=== PATIENT | female | born 1960 | race Hispanic/Latino ===

== ENCOUNTER 2024-06-17 09:36 | Inpatient (IN) | payer OTHER ==
[2024-06-17 17:27] VITALS: BMI 41.0
[2024-06-17] MEDS ORDERED: MELATONIN 3 MG TABLET PO PRN (18:34)
[2024-06-17] MEDS ORDERED: DOCUSATE NA/SENNA CONC 1 TAB PO PRN (18:34)
[2024-06-17] MEDS ORDERED: ALBUTEROL INHALER 200 PUFF/6.7 GM IH PRN (18:52)
[2024-06-17] MEDS: ACETAMINOPHEN 500 MG TAB PO PRN (19:15)
[2024-06-17] MEDS: CEFDINIR 300 MG CAP PO SCH (19:51)
[2024-06-17] MEDS: oxyBUTYnin chloride 5 MG TAB PO SCH (19:52)
[2024-06-17] MEDS: ATORVASTATIN 20 MG TAB PO SCH (19:52)
[2024-06-17] MEDS: SERTRALINE HCL 100 MG TAB PO SCH (19:52)
[2024-06-17] MEDS: GABAPENTIN 300 MG CAP PO SCH (19:52)
[2024-06-17] MEDS ORDERED: HIPREX 1 GM PO SCH (20:00)
[2024-06-17] MEDS: APIXABAN 2.5 MG TABLET PO SCH (20:00)
[2024-06-17] MEDS: APIXABAN 2.5 MG TABLET PO ONE (20:22)
[2024-06-17] MEDS: ISOSORBIDE MONO SR 60 MG TAB PO SCH (20:22)
[2024-06-17] MEDS: carvediloL 6.25 MG TAB PO SCH (20:22)
[2024-06-18 04:45] LABS: Absolute Basophils 0.1 K/uL (0-0.5); Absolute Monocytes 0.6 K/uL (0.1-1.3); Absolute Neutrophil 4.4 K/uL (1.8-8.0); MPV 9.3 fL (7.6-11.3)
[2024-06-18 04:47] LABS: Absolute Eosinophils 0.4 K/uL (0-0.5); Eosinophils % 5.1 % (0-4.4); Hematocrit 36.9 % (36.0-45.0); Hemoglobin 12.2 g/dL (12.0-15.0); MCH 33.3 pg (27.0-35.0); MCHC 32.9 g/dL (32.0-36.0); MCV 101.1 fL (80-100); Neutrophils % 58.9 % (41.7-73.7); Nucleated RBC Absolute Count 0.1 (0-0); Nucleated Red Blood Cells % 1.4 % (0-0); Platelets 240 thou/uL (152-406); RBC Red Blood Cell Count 3.65 M/uL (3.86-4.86); Red Cell Distribution Width 16.4 % (12.1-15.2)
[2024-06-18 06:04] LABS: Albumin 2.8 g/dL (3.4-5.0); Anion Gap 11.5 mEq/L (5.0-15.0); Prealbumin 19.8 mg/dL (20-40)
[2024-06-18 06:06] LABS: Potassium 3.5 mEq/L (3.5-5.1)
[2024-06-18] MEDS: NA CHLORIDE 0.9% 500 ML IV ONE ×2 (07:00→09:00)
[2024-06-18 07:39] LABS: Differential Total Cells Count 100; Eosinophils 4 % (0-3); Lymphocytes 27 % (15-42); Monocytes 7 % (0-10); Nucleated Red Blood Cells 1 /100WBC; Segmented Neutrophils 62 % (40-80)
[2024-06-18 07:40] LABS: Platelet Estimate ADEQ
[2024-06-18 07:41] LABS: Anisocytosis 1+; Blood Morphology Comment NOTED (NOT SEEN); Macrocytosis 1+
[2024-06-18] MEDS ORDERED: ANORO ELLIPTA PO SCH (08:00)
[2024-06-18] MEDS ORDERED: HIPREX 1 GM PO SCH (08:00)
[2024-06-18] MEDS: ANORO ELLIPTA PO SCH (08:00)
[2024-06-18] MEDS: FLU (Fluarix Triv) TS24-25(6MOS UP)/PF 45 MCG/0.5 ML Syringe IM ONE (08:45)
[2024-06-18] MEDS ORDERED: ALBUTEROL IH PRN (08:47)
[2024-06-18] MEDS: PNEUMOCOCCAL VACCINE 0.5 ML IMVAC ONE (09:00)
[2024-06-18] MEDS: allopurinoL 100 MG TAB PO SCH (09:22)
[2024-06-18] MEDS: CLOPIDOGREL 75 MG TABLET PO SCH (09:23)
[2024-06-18] MEDS: glipiZIDE 5 MG TAB PO SCH (09:23)
[2024-06-18] MEDS: SODIUM CHLORIDE 1 GM TAB PO ONE (09:24)
[2024-06-18] MEDS: FUROSEMIDE 40 MG TABLET PO SCH (09:24)
[2024-06-18] MEDS: SPIRONOLACTONE 25 MG TABLET PO SCH (09:26)
[2024-06-18] MEDS: NYSTATIN PWDR 100000 UNIT/GM TOP SCH (10:34)
[2024-06-18] MEDS: LINZESS 145 MCG PO SCH (10:35)
[2024-06-18] MEDS: HIPREX 1 GM PO SCH (10:35)
[2024-06-18] MEDS: DEXTROSE ORAL 40% 15 GM TUBE PO PRN (11:51)
[2024-06-18] MEDS: LOPERAMIDE HCL 2 MG CAPSULE PO PRN (12:48)
[2024-06-18] MEDS: SODIUM CHLORIDE 1 GM TAB PO SCH (17:02)
[2024-06-18] MEDS: NYSTATIN POWDER TOP SCH (19:48)
--- NOTE | 2024-06-18 22:03 | HP ---
Date of Admission: 06/17/2024 Time Of Service: 8:30 a.m. Chief Complaint: "I have had strokes, I need to get stronger." History Of Present Illness: Ms. Blankenship is a 63-year-old patient with coronary artery disease, status post 3 vessel bypass grafting; stroke in 2012 and 2 other subsequent strokes last 2022 with left-side d weakness more in the arm than in the leg; has also some loss of sensation in terms of deficit on th e left side. She has hypertension, dyslipidemia, chronic renal insufficiency, COPD, recurrent urinar y tract infections around every 3 months, anxiety, depression, arthritis. Despite the multiple condi tions and stroke, she had previously been independent mobilizing at home with a cane or rolling walke r, residing with her in home, which is 1 level with 3 steps to enter. On June 14, she prese nted to [facility] after being found unresponsive on the floor by family. She had m ore left-sided weakness and significant apparent worsening. She had increased difficulty with speech , worsening short-term memory. The patient thought she was having another stroke. Her family noted that prior to that, she actually had some episodes of stumbling and falling, where she herself actual ly said her left leg would just give out and have to pick her up. She was evaluated and found to be intermittently falling asleep and had subsequently when admitted nausea and vomiting with chronic javier rrhea. She was evaluated by colonoscopy and CT scan of the head and no acute abnormalities identifie d. She is evaluated by teleneurology and had an MRI of the brain, which showed no acute stroke, but a large area of gliosis in the right temporoparietal occipital region consistent with prior infarct. The patient was therefore thought to be experiencing the sequelae of stroke with intercurrent illnes s or mass deficit of a stroke from which she had mostly recovered. She said she was back to about 80 % or 90% to normal prior to the event. She was also found to be dehydrated and had sinus bradycardia requiring IV fluids and heart rate control. Echocardiogram showed ejection fraction of 60% to 79% w ith left internal carotid artery stent placement and there was occlusion on the right side . Urinary tract infection was identified after straight catheterization was done. Also, she had sta ge 2 acute on chronic renal disease, which is chronic stage 3-4 and stage 2 acute. She was felt to h ave had the acute issue from prerenal azotemia or decreased blood flow due to chronic diuresis. Her renal function did improve with fluids. She did remain incontinent of bowel, bladder, which is her b aseline, but it is noted that she would benefit from bladder training, bowel training to help prevent skin breakdown and reduce the risk of rehospitalization. She has had significant decline from her b aseline level of functioning with the left side worsening, dysarthria, worsening short-term memory in addition to her comorbid medical issues have been noted. She was evaluated by therapy service and f ound to be only able to ambulate about 10 feet with a rolling walker, physical therapy also had diffi culty with transfers from bed to chair, to toilet, to shower and had significant cognitive deficits a nd safety awareness issues. It was recommended that she would have inpatient rehabilitation along wi th medical management so that she may return to her prior level of functioning and reduce risk of sergio ospitalization. Therapy in a lower level of care such as long-term or at home would likely res ult in patient worsening. Past Medical History: As noted above with COPD; chronic renal insufficiency; CHF; coronary artery di sease, status post multivessel bypass grafting; diabetes mellitus; dyslipidemia; hypertension; urinar y tract infection; incontinent of bowel and bladder. Past Surgical History: Coronary artery bypass grafting, percutaneous coronary angioplasty, appendect felipe, cholecystectomy, hysterectomy, tonsillectomy, carotid angioplasty, splenectomy, left nephrectomy , and of course has a single kidney on the right that is functioning. Imaging: CT scan of abdomen and pelvis, no acute abnormalities identified. No osseous abnormalities in the cervical region identified when imaging of the neck was done. MRI of the brain on 06/15, neg ative for acute stroke. Large area of gliosis in the right temporal, parietal, occipital region comp atible with infarct. There is also on the Doppler study, right internal carotid artery estimated ___ occlusion and left internal carotid estimated 60% to 79% occlusion. Stent to the left [employer] intern al carotid artery with significant plaque visualization, anterograde flow noted. C-spine MRI on 10/2024, no acute osseous abnormality. Slight increased partial opacification of the left middle ear and mastoid air cells. Correlate with clinical findings. Allergies: IODINE, PEANUTS, SULFA. Medications: Tylenol Extra Strength 500 mg every 4 hours as needed, [place] 7.5/325 every 6 hours as n eeded, allopurinol 100 mg daily, Eliquis 2.5 mg daily, Lipitor 20 mg at bedtime, Coreg 6.25 mg twice daily, cefdinir 300 mg twice daily, Plavix 75 mg daily, Drisdol 5000 units weekly, Lasix 40 mg twice daily, glipizide 5 mg at breakfast, Imdur 60 mg twice daily, melatonin 3 mg at bedtime, Ditropan 10 m g at bedtime, Senokot S 2 at bedtime p.r.n. will be held if the patient has loose stools, Zoloft 100 mg at bedtime. She has sodium chloride received 2 g x1 and 1 g twice daily, spironolactone 25 mg hillary ly. Laboratory Studies: Her sodium is found to be very low currently at 114. Prior to coming to [facility], the sodium was reported at 144. She did receive 2 g of sodium and will have 1 g twice daily and n ormal saline 500 cc. However, this is much lower than the calculated requirement of the patient's so dium, which is around 2.5 L of 3% normal saline. However, that will not be given at this point. She will have a repeat electrolyte panel and will have gingerly replacement of sodium if it is still naeem y low. Potassium 3.5, chloride 85, carbon dioxide 21, BUN 46, creatinine 1.58, glucose of 63 to 70, calcium 9.1. Magnesium 2.0. Albumin 2.8, prealbumin 19.8. White blood cell count 7.5, hemoglobin 1 2.2, platelets 240. Family History: Noncontributory. Social History: No alcohol, tobacco, or IV drug use. Lives with family in single family home, 3 ozey ps to enter home. Current Level Of Functioning: Setup assistance for eating. Supervision for grooming. Maximum mia tance for bathing. Moderate assistance for upper body dressing. Maximal assistance for lower body d ressing and donning and doffing of footwear. She is dependent for toileting, moderate assistance for transfer from bed, chair, wheelchair. Her toilet specific transfers moderate assistance. Ambulatio n of 10 feet with supervision with a rolling walker. Physical Examination: Vital Signs: Blood pressure 142/70, pulse 74, respiratory rate 16, temperature 98.2, oxygen saturati on 95%. Weight 210 pounds, height 5 feet, BMI 41.0. Please note that her calculated sodium deficit with weight of 210 pounds or 95 kg is at 140 target with 114 current sodium and total body water of 0 .5 x 95 that equals to 1241 mEq sodium needed or 2.4 L at 3%. She will be re-evaluated with the repe at blood work. HEENT: She is normocephalic, atraumatic. She has a slight decrease of left nasolabial fold with jigar r excursions and smiling. Slight difficulty with labial, lingual, and guttural sounds. Neuro: The left upper and lower extremities, she has at least 3 to 4/5 strength and sensation is dec reased to non-existent on the left leg compared to the left arm. Right side upper and lower extremit ies intact in terms of strength, coordination, sensation. Reflexes are brisk on the left, normal on the right upper and lower extremities. Coordination is slow, but intact in upper and lower extremiti es. She will be ambulated with the physical therapists with gait belt and wheelchair and tow and she uses a rolling walker. Rehab And Medical Assessment And Plan: Ms. Blankenship is a 63-year-old patient admitted to the inpatient rehabilitation unit with impairment category 01 stroke. Her impairment group code is 01.1 left body involvement, right brain. Etiologic diagnosis, sequelae of stroke. Her comorbid conditions include diabetes mellitus; hypertension; dyslipidemia; coronary artery disease, status post multivessel bypas s grafting; urinary tract infection; incontinence of urine and stool; chronic kidney disease with an acute component; and decreased mobility; decreased physical functioning. Plan: She will have physical, occupational, and speech therapy 3.5 hours, 5 of 7 days. We will cont inue with careful monitoring of the patient's sodium for replacement of sodium chloride as appropriat mathieu and slowly. We will continue with diuresis gently. Zoloft at night for sleep. Senokot for cons tipation, but will hold when the patient has loose stool. Ditropan for urinary incontinence, melaton in again for insomnia. Continue glipizide for blood sugar control. She has a mild insulin sliding s villa. Vitamin D on board. She has Plavix 75 mg daily, Eliquis 2.5 mg daily for stroke and DVT risk reduction, allopurinol to address gout. She has Lipitor for dyslipidemia Tylenol and Hudgins for pain. Comorbidities That Are Impacting Rehabilitation: Currently, she has severe hyponatremia, however, th at may be an incorrect lab, is being repeated and she will have to have gingerly replacement so as to avoid central pontine myelinolysis. Next, we will offload as much as possible. The patient to redu ce risk of breakdown especially and because of incontinence of stool and urine and will be regularly taken with bowel and bladder training to have timed voidings to reduce the risk of time where she is remaining in stool. We will work aggressively with her balance and coordination. She has fallen mul tiple times when the left leg is giving out as she has very little proprioceptive and sensory input i n the left lower extremity contributing to her falls. We will re-educate how to be in attention usin g the left arm and assistive device to minimize the risk of falling. Rehab Specific Plan: Ms. Blankenship will have physical, occupational, and speech therapy 3.5 hours, 5 of 7 days to improve her ability to transfer safely from bed to a chair, to a wheelchair, to a toilet, i n and out of shower to dress upper and lower body, donning and doffing footwear. She will work with adaptive equipments to allow her to recognize changes in surfaces from carpeting to smooth surfaces, to tiles, to grass, ramps, and curbs. We will work on balance exercises and will work on endurance e xercises and improving pulmonary function and reducing risk of aspiration. Ms. Blankenship has a good understanding of the process of admission to the inpatient rehabilitation unit a nd how she will benefit from physical, occupational, and speech therapy. She will have 24 hours a da y, 7 days a week skilled rehabilitation nursing, daily physician evaluation and management, and [facility] and management for discharge planning, home equipment, and to continue therapy via Home Health. If need be, additional help will be sought by the hospitalist service and cardiolog y service. Barriers To Discharge: Currently, the patient does have significantly low sodium and that may lead t o prolonged hospitalization in acute care; however, that will be repeated and addressed slowly. Also , she has a high risk of falling given the loss of proprioception in left lower extremity. She will be re-educated, but if she is unable to thrive and do well and safe for home, she may have to go to [facility]. Length Of Stay: About 12 days. Disposition: Expected to be home with family and continue therapy via Home Health. Prognosis: Good. Code Status: Full code. Rehab Specific Goals: 1. Become independent with upper and lower body dressing, donning and doffing of footwear. 2. Independently mobilize 250 feet with a rolling walker, 250 feet with a wheelchair, and up and down 10 steps with bilateral handrails. 3. Independently perform all activities of daily living. 4. Independently perform cognitive functioning, safety awareness, and to be able to manage bowel and bladder functioning as safely as possible. The above goals were reviewed with Ms. Blankenship she is in agreement. By signing this document, I acknowledge I personally performed a full physical examination on Ms. Alan patiño no later than 24 hours after admission to the inpatient rehabilitation unit and determined that jed garrett is able to tolerate the above course of treatment at an intensive level for reasonable period of ti me. A detailed individualized plan of care for her will be completed by hospital day 4 based on the preadmission screen, history and physical, and therapy evaluations. AURY Voice ID: [id number]
[2024-06-19 05:50] LABS: Anion Gap 5.3 mEq/L (5.0-15.0); Potassium 4.3 mEq/L (3.5-5.1)
[2024-06-19] MEDS: HYDROCODONE/APAP 7.5/325 MG TAB PO PRN (08:25)
[2024-06-19] MEDS: glipiZIDE 5 MG TAB PO SCH (08:27)
[2024-06-19] MEDS ORDERED: GLUCAGON 1 MG/VIAL IV PRN (13:30)
[2024-06-19] MEDS: LIDOCAINE 4% PATCH TOP SCH (14:38)
[2024-06-19 19:35] LABS: Sqamous Epithelial <5 /HPF (None Seen); Urine Bacteria <20 /HPF (<20); Urine Bilirubin NEGATIVE (Negative); Urine Blood Negative (Negative); Urine Clarity Clear (Clear); Urine Color Colorless (Yellow); Urine Culture Reflex Order NOT NEEDED; Urine Glucose NEGATIVE (Negative); Urine Ketones NEGATIVE (Negative); Urine Microscopic Reflex YN ORDER UMIC; Urine Nitrite NEGATIVE (Negative); Urine Protein NEGATIVE (Negative); Urine RBC <5 /HPF (None Seen); Urine Urobilinogen Normal (Normal); Urine WBC <5 /HPF (<5); Urine Yeast (Budding) Trace /HPF (None Seen)
--- NOTE | 2024-06-19 20:09 | PN ---
Date of Progress Note: 06/19/2024 Time Of Service: 1:25 p.m. Subjective: Ms. Blankenship just completed going up and down 7 flights of steps. She did report some pain in the left knee and in the back of the neck on the left side. Otherwise, she has no additional or new complaints. She of course is dealing with the sequelae of stroke which involves left side more t manzano right foot. Objective: Pain noted in the left knee, both medial and lateral, in the left shoulder and neck regio n. Otherwise, normocephalic, atraumatic. Sclerae anicteric. Oropharynx moist. Physical Examination: Vital Signs: Blood pressure 148/65, pulse 64, respiratory rate 18, temperature 97.4, oxygen saturati on 94%. Weight 210 pounds, height 5 feet, BMI 41.0. Neuro: Again, as noted mild decreased left nasolabial fold. She has good excursions. She does not have a significant amount of weakness, just incoordination and more left and right-sided mild weaknes s, again pain noted, some mild increased amount of tissue palpated in the medial aspect of the left k nee, but no obvious fluid bearing. Laboratory Studies: White blood cell count is 7.5, hemoglobin 12.2, platelets 240. Sodium 141, pota ssium 4.3, chloride 115, carbon dioxide 25, creatinine is 1.65, glucose ranged from 74 to 96, hemoglo bin A1c 5.2, calcium 9.3. X-ray/imaging: No new x-rays or imaging done. Medications: Tylenol 500 mg every 4 hours as needed, [place] 7.5/325 every 6 hours as needed, allopuri nol 100 mg daily, Eliquis 2.5 mg twice daily, Lipitor 20 mg at bedtime, Coreg 6.25 mg twice daily, ce fdinir 300 mg twice daily, Plavix 75 mg daily, Drisdol 5000 units weekly, Lasix 40 mg twice daily, ga bapentin 400 mg twice daily, glipizide 2.5 mg daily, Imdur 60 mg twice daily, lidocaine 2 patches brynn lied as noted on the left knee and on the left shoulder neck region, melatonin 3 mg at bedtime, Ditro graf 10 mg at bedtime, Senokot 2 times at bedtime, Zoloft 100 mg at bedtime, spironolactone 25 mg julián y. Progress Made With Physical, Occupational, And Speech Therapy: With physical therapy today, she was able to ambulate about 125 feet with min assist and using the 2-wheeled walker. She was up and down 6 flights of steps with min to mod assist. Upper and lower body dressing done with supervision. She is beginning to work with speech pathology. Assessment: Ms. Blankenship is a 63-year-old patient with sequelae of stroke. She does have some weakness noted in both upper and lower extremities, incoordination, poor balance, poor gait. She has decreas ed mobility, decreased physical functioning. She also has depression, urinary retention, constipatio n, insomnia, diabetes, hypertension, and stroke risk. She has gout as well. Plan: She will have physical, occupational, and speech therapy 3.5 hours, 5 of 7 days. Continue wit h her list of medications for Eliquis 2.5 mg twice daily for DVT prophylaxis, allopurinol for gout. She has Coreg for heart rate and blood pressure control, Plavix for stroke risk reduction, vitamin D on board. She has gabapentin on board as well as medications for managing depression and anxiety. HAFSA/KENNEY Voice ID: [id number] Report ID: [id number]
[2024-06-19] MEDS: ANORO ELLIPTA PO SCH (20:50)
[2024-06-19] MEDS: carvediloL 6.25 MG TAB PO SCH (20:51)
[2024-06-19] MEDS: GABAPENTIN 400 MG CAP PO SCH (20:51)
[2024-06-20] MEDS: CRANBERRY FRUIT EXTRACT 425 MG CAPSULE PO SCH (06:49)
[2024-06-20] MEDS: ASPIRIN EC 81 MG TAB PO SCH (07:54)
[2024-06-20] MEDS ORDERED: LIDOCAINE 4% PATCH TOP SCH (08:00)
[2024-06-20] MEDS ORDERED: CRANBERRY FRUIT EXTRACT 425 MG CAPSULE PO SCH (08:00)
--- NOTE | 2024-06-20 15:22 | PN ---
Date of Progress Note: 06/20/2024 Time Of Service: 1:25 p.m. Subjective: Ms. Blankenship is sitting at the nursing station. She is in between therapy sessions. She h as no new complaints. She said the left knee pain has been mitigated well with a lidocaine patch. A lso, there is a patch in the left shoulder and that is also helpful. She is feeling well so far abou t the progress made with therapy. Objective: She denies any new symptoms and again reports some improved pain in the left knee and the left shoulder. No fevers, chills. No significant arthralgias. No rash. No active psychiatric iss ues. Physical Examination: Vital Signs: Blood pressure 116/56, pulse 55, respiratory rate of 16 to 18, temperature 97.9, oxygen saturation 98%. General: Ms. Blankenship is sitting in a chair getting ready to do therapy. HEENT: She is normocephalic, atraumatic. Sclerae anicteric. Oropharynx pink, moist. Neck: Supple. Chest: Clear. Extremities: No new findings or significant edema or so noted. Laboratory Studies: Blood sugars ranged from 94 to 147. X-ray/imaging: No new x-rays or imaging. Medications: Her medications have been reviewed and are unchanged. She still has the cefdinir 14 do ses ordered from 06/17 to 06/24 and that is b.i.d., she has glipizide 2.5 mg daily with breakfast. S he has also Imdur, lidocaine patch as noted, Imodium, melatonin, Ditropan for urinary retention, Seno manuela, Zoloft, spironolactone. Progress Made With Physical And Occupational Therapy: With her occupational therapy, contact minimal guard assistance required for tub and shower transfer, she did showering with minimal assistance, coulter pervision for upper body dressing, minimum assistance for lower body dressing, minimum assistance for donning and doffing footwear and socks. With speech, she has long-term goals of scoring greater tani n a 7 on the BIMS and improving the score to a 15 or better on the SLUMS. Assessment: Ms. Blankenship is a 63-year-old patient in the rehabilitation unit with sequelae of stroke. She is making fair overall progress, but still has significant way to go to improve her ability to re duce the chance of falling and injury and worsening condition. She still has decreased mobility, dec reased physical functioning in addition to urinary retention, fluid retention, insomnia, mild constip ation, neuropathic pain, diabetes mellitus, stroke risk, and gout. Plan: She will continue with physical, occupational, and speech therapy 3.5 hours, 5 of 7 days. Her list of medications has been noted. She will continue those. Continue with therapy and plan is for her to be able to discharge and go home to continue therapy at home. Depending on how she is doing, she may have to spend an extra active time as much as possible prior to going back home. HAFSA/KENNEY Voice ID: [id number] Report ID: [id number]
[2024-06-20] MEDS: INSULIN REGULAR (HUMAN) 100 UNIT/ML SQ SCH (16:27)
[2024-06-21] MEDS: SIMETHICONE 80 MG CHEWABLE TAB PO PRN (15:16)
[2024-06-21] MEDS: FUROSEMIDE 20 MG TABLET PO SCH (17:15)
[2024-06-21] MEDS: GLUCERNA SHAKE 237 ML CAN PO SCH (20:00)
[2024-06-21] MEDS: GABAPENTIN 300 MG CAP PO SCH (20:07)
--- NOTE | 2024-06-21 21:49 | P.CNS ---
Date of Consult: 06/22/24 Reason for Consult: CKD Requesting Physician: George Guillory Chief Complaint: Weakness History of Present Illness: Chief Complaint: "I have had strokes, I need to get stronger." History Of Present Illness: Ms. Blankenship is a 63-year-old patient with coronary artery disease, status post 3 vessel bypass grafting; stroke in 2012 and 2 other subsequent strokes last 2022 with left-sided weakness more in the arm than in the leg; has also some loss of sensation in terms of deficit on the left side. She has hypertension, dyslipidemia, chronic renal insufficiency, COPD, recurrent urinary tract infections around every 3 months, anxiety, depression, arthritis. Despite the multiple conditions and stroke, she had previously been independent mobilizing at home with a cane or rolling walker, residing with her in home, which is 1 level with 3 steps to enter. On June 14, she presented to [facility] after being found unresponsive on the floor by family. She had more left-sided weakness and significant apparent worsening. She had increased difficulty with speech, worsening short-term memory. The patient thought she was having another stroke. Her family noted that prior to that, she actually had some episodes of stumbling and falling, where she herself actually said her left leg would just give out and have to pick her up. She was evaluated and found to be intermittently falling asleep and had subsequently when admitted nausea and vomiting with chronic diarrhea. She was evaluated by colonoscopy and CT scan of the head and no acute abnormalities identified. She is evaluated by teleneurology and had an MRI of the brain, which showed no acute stroke, but a large area of gliosis in the right temporoparietal occipital region consistent with prior infarct. The patient was therefore thought to be experiencing the sequelae of stroke with intercurrent illness or mass deficit of a stroke from which she had mostly recovered. She said she was back to about 80% or 90% to normal prior to the event. She was also found to be dehydrated and had sinus bradycardia requiring IV fluids and heart rate control. Echocardiogram showed ejection fraction of 60% to 79% with left internal carotid artery stent placement and there was occlusion on the right side. Urinary tract infection was identified after straight catheterization was done. Also, she had stage 2 acute on chronic renal disease, which is chronic stage 3-4 and stage 2 acute. She was felt to have had the acute issue from prerenal azotemia or decreased blood flow due to chronic diuresis. Her renal function did improve with fluids. She did remain incontinent of bowel, bladder, which is her baseline, but it is noted that she would benefit from bladder training, bowel training to help prevent skin breakdown and reduce the risk of rehospitalization. She has had significant decline from her baseline level of functioning with the left side worsening, dysarthria, worsening short-term memory in addition to her comorbid medical issues have been noted. She was evaluated by therapy service and found to be only able to ambulate about 10 feet with a rolling walker, physical therapy also had difficulty with transfers from bed to chair, to toilet, to shower and had significant cognitive deficits and safety awareness issues. It was recommended that she would have inpatient rehabilitation along with medical management so that she may return to her prior level of functioning and reduce risk of rehospitalization. Therapy in a lower level of care such as long term or at home would likely result in patient worsening. She follows with Dr. Bonilla for her CKD. Past Medical History: As noted above with COPD; chronic renal insufficiency; CHF; coronary artery disease, status post multivessel bypass grafting; diabetes mellitus; dyslipidemia; hypertension; urinary tract infection; incontinent of bowel and bladder. Past Surgical History: Coronary artery bypass grafting, percutaneous coronary angioplasty, appendectomy, cholecystectomy, hysterectomy, tonsillectomy, carotid angioplasty, splenectomy, left nephrectomy, and of course has a single kidney on the right that is functioning. Allergies iodine Allergy (Verified 06/17/24 17:30) Itching/Hives/Rash peanut Allergy (Verified 06/17/24 17:45) Itching/Hives/Rash Sulfa (Sulfonamide Antibiotics) Allergy (Verified 06/17/24 17:45) Itching/Hives/Rash Home medications list reviewed: Yes Home Medications: Allopurinol 100 mg PO DAILY 06/17/24 Apixaban [Eliquis *] 2.5 mg PO BID 06/17/24 Atorvastatin Calcium 20 mg PO BEDTIME 06/17/24 Ergocalciferol (Vitamin D2) [Vitamin D 50,000 Unit Cap] 50,000 unit PO Q7D 06/17/24 Furosemide [Lasix] 40 mg PO BIDL 06/17/24 Gabapentin 300 mg PO BID 06/17/24 Hydrocodone 7.5/APAP 325 [[place] 7.5/325 mg*] 1 tab PO Q6H PRN 06/17/24 Isosorbide Mononitrate [Isosorbide Mononitrate ER] 1 tab PO BID 06/17/24 Linaclotide [Linzess] 1 tab PO DAILY 06/17/24 Methenamine Hippurate 1 gm PO BIDWM 06/17/24 Sertraline [Zoloft*] 100 mg PO BEDTIME 06/17/24 Spironolactone [Aldactone*] 25 mg PO DAILY 06/17/24 carvediloL [Carvedilol] 1 tab PO BID 06/17/24 glipiZIDE [Glipizide ER] 5 mg PO DAILY 06/17/24 oxyBUTYnin chloride [Ditropan*] 10 mg PO BEDTIME 06/17/24 - Past Medical/Surgical History Diabetic: Yes -: CHF -: HTN -: HLD -: CKD (Dr. Bonilla/ [facility]) -: DM -: COPD -: DVT -: arthritis -: anxiety -: depressioin -: recurrent uti -: CABG (tipbossman) 2011 -: Left Nephrectomy -: Hysterectomy -: Cholecystectomy -: Spleenectomy - Social History Alcohol use: No CD- Drugs: No Caffeine use: Yes Review of Systems 10-point ROS is otherwise unremarkable Neurological: Weakness Physical Examination Temp Pulse Resp BP Pulse Ox 98.1 F 64 18 126/64 96 06/21/24 07:05 06/21/24 17:15 06/21/24 15:30 06/21/24 17:15 06/21/24 15:30 General: In no apparent distress, Oriented x3, Cooperative HEENT: Atraumatic Neck: Supple Respiratory: Normal air movement Cardiovascular: No edema, Regular rate/rhythm Gastrointestinal: Non-distended, No guarding, Tenderness Musculoskeletal: No clubbing, No contractures Integumentary: No rashes, No cyanosis Neurological: Abnormal speech Blood work reviewed in the chart. Imagings Data: Imaging: CT scan of abdomen and pelvis, no acute abnormalities identified. No osseous abnormalities in the cervical region identified when imaging of the neck was done. MRI of the brain on 06/15, negative for acute stroke. Large area of gliosis in the right temporal, parietal, occipital region compatible with infarct. There is also on the Doppler study, right internal carotid artery estimated occlusion and left internal carotid estimated 60% to 79% occlusion. Stent to the left internal carotid artery with significant plaque visualization, anterograde flow noted. C-spine MRI on 06/07/2024, no acute osseous abnormality. Slight increased partial opacification of the left middle ear and mastoid air cells. Correlate with clinical findings. Conclusions/Impression: Stage I SAIDA in the setting of relative hypotension CKD IIIb -No NSAIDs Hyponatremia -Resolved Hyperkalemia -Hold spironolactone at this time HTN with CKD/ CHF -Discontinue Coreg due to bradycardia -Reduce Isosorbide once daily and titrate as needed Diastolic CHF, chronic -Reduce Lasix once daily and titrate as needed -CXR in the AM DM II with Polyneuropathy -RISS -Continue Glipizide -Continue Gabapentin Hypoalbuminemia -Continue Glucerna Anemia in chronic illness Macrocytosis -Check B12 level Attending note reviewed Thank you kindly for the consultation
[2024-06-22 05:50] LABS: Absolute Basophils 0.1 K/uL (0-0.5); Absolute Eosinophils 0.6 K/uL (0-0.5); Absolute Lymphocytes (CBC) 3.1 K/uL (0.7-4.9); Absolute Monocytes 0.7 K/uL (0.1-1.3); Absolute Neutrophil 3.7 K/uL (1.8-8.0); Basophils % 1.1 % (0-1.3); Eosinophils % 7.1 % (0-4.4); Hematocrit 35.2 % (36.0-45.0); Hemoglobin 11.6 g/dL (12.0-15.0); Lymphocytes % 38.1 % (15.3-44.8); MCH 33.4 pg (27.0-35.0); MCHC 32.8 g/dL (32.0-36.0); MCV 101.8 fL (80-100); MPV 8.9 fL (7.6-11.3); Monocytes % 8.8 % (3.3-12.3); Neutrophils % 44.9 % (41.7-73.7); Nucleated RBC Absolute Count 0.1 (0-0); Nucleated Red Blood Cells % 0.7 % (0-0); Platelets 256 thou/uL (152-406); RBC Red Blood Cell Count 3.46 M/uL (3.86-4.86); Red Cell Distribution Width 15.8 % (12.1-15.2)
[2024-06-22 06:10] LABS: Albumin 3.1 g/dL (3.4-5.0); Anion Gap 6.1 mEq/L (5.0-15.0); Magnesium 2.2 mg/dL (1.6-2.4); Potassium 5.1 mEq/L (3.5-5.1); Prealbumin 23.4 mg/dL (20-40)
[2024-06-22] MEDS: DRISDOL (VITAMIN D=ERGOCALCIFEROL) 50000 UNIT CAP PO SCH (08:25)
[2024-06-22] MEDS ORDERED: LIDOCAINE 4% PATCH ONE (19:02)
--- NOTE | 2024-06-22 21:24 | PN ---
Date of Progress Note: 06/22/2024 Time Of Service: 1:25 p.m. Subjective: Ms. Blankenship is ambulating around the unit. She is doing very well. The pain in the left knee has improved with pain patch in place. Also, left shoulder pain is doing fairly well. She has no new complaints. Review of Systems: No fevers, chills, nausea, vomiting. Again, pain improved to the left knee. No myalgias, arthralgia s, rash, headache, and weight change. Physical Examination: Vital Signs: Blood pressure 123/57, pulse 56, respiratory rate of 18, temperature 98.1, oxygen satur ation 94%. Weight 210 pounds, height 5 feet, BMI 41.0. General: Ms. Blankenship is ambulating around the unit. HEENT: She appears normocephalic, atraumatic. Sclerae anicteric. Oropharynx pink, moist. Extremities: Diffuse weakness of lower extremities. No new deficits identified in terms of her exam ination. Laboratory Studies: Her white blood cell count is 8.2, hemoglobin 11.6, platelets 256. Sodium 142, potassium 5.1, chloride 114, carbon dioxide 27, BUN 74, creatinine 2.35, glucose ranged from 96 to 11 8, calcium 9.2. Magnesium 2.2. Albumin 3.1, prealbumin 23.4. X-rays/imaging: She has no new x-rays or imaging. Medications: Have been reviewed and she does have cefdinir to continue from 06/17 to 06/24 300 mg tw ice daily. She has Lasix 20 mg daily, has loop diuretic started by Dr. Larson on the renal service. In addition, she has Imdur 60 mg daily and Coreg 3.125 mg twice daily was discontinued and the Imdu r 60 mg twice daily also was discontinued. Progress Made With Physical, Occupational, And Speech Therapy: With physical therapy today, multiple [id number] transfers done with contact guard assistance. In the afternoon, she did additional bed mobilization activities with contact guard assistance. She ambulated 250 feet with contact guard as sistance using a rolling walker and another 250 feet in the afternoon with contact guard assistance a nd rolling walker. She was up and down 10 steps with contact guard assistance. With occupational th sp, demonstrated minimal assistance with tub transfer and getting her legs off the bed. She is st andby assistance with all [id number] transfers. Showers are contact guard assistance level. With speech, she was oriented to temporal and spatial concepts with moderate verbal cues and visual cues r equired as well. Pictures were recalled after 3 minutes and 6 minutes and convergent naming skills w ere exhibited with concrete concepts with 60% accuracy. Assessment: Ms. Blankenship is a 63-year-old patient in rehabilitation unit with sequela of stroke. She s till has mild decreased mobility, decreased physical functioning in addition to neuropathic pain, javier betes mellitus, hypertension with episodes of low blood pressure, abdominal bloating, depression, uri nary retention, and insomnia. Plan: She will continue with physical, occupational, and speech therapy 3.5 hours, 5 of 7 days. She is also being followed by the renal service, Dr. Larson, making adjustments to the patient's blood pressure medications and diuretics. She does have stage 2-3 kidney failure and that is being managed by Dr. Larson. Otherwise, she will continue all medications as noted and therapy 3.5 hours, 5 of 7 days. HAFSA/MODJessica Voice ID: [id number] Report ID: [id number]
[2024-06-22 23:32] LABS: UR PROTEIN 8.3 mg/dL (<11.9); Urine Protein/Creatinine Ratio 0.13 ratio (<0.15)
[2024-06-22 23:39] LABS: UR MICROALBUMIN < 0.5 mg/dL (< 1.9)
[2024-06-23 05:25] LABS: ALT/SGPT 17 U/L (13-56); AST/SGOT 11 U/L (15-37); Albumin 2.8 g/dL (3.4-5.0); Albumin/Globulin Ratio 0.7 (1.1-1.8); Alkaline Phosphatase 146 U/L (45-117); Anion Gap 8.7 mEq/L (5.0-15.0); BUN Blood Urea Nitrogen 72 mg/dL (7-18); Bicarbonate 25 mEq/L (21-32); Globulin 4.3 g/dL (2.3-3.5); Glomerular Filtration Rate 26 ml/min (=/>90); Glucose Level 105 mg/dL (74-106); NT PRO-BNP 420 pg/mL (<125); Phosphorus 4.3 mg/dL (2.5-4.9); Potassium 4.7 mEq/L (3.5-5.1); Protein, Total 7.1 g/dL (6.4-8.2); Sodium Level 141 mEq/L (136-145); Uric Acid 6.8 mg/dL (2.6-6.0)
[2024-06-23 05:30] LABS: Bilirubin Total < 0.2 mg/dL (0.2-1.0)
--- NOTE | 2024-06-23 08:28 | RAD REPORT ---
Procedure: Chest Single View HISTORY: CHF exacerbation COMPARISON: none FINDINGS: The lungs appear clear of acute infiltrate. No significant pleural effusion noted. The heart is mildly enlarged. Post surgical changes involve the chest. IMPRESSION: No acute abnormality is displayed.
[2024-06-23] MEDS: FUROSEMIDE 20 MG TABLET PO SCH (08:36)
--- NOTE | 2024-06-23 11:51 | P.PN ---
Nephrology note (S) Pt seen working with speech therapy, sitting in wheel chair, reports making some PT progress, does endorse some BAIRES. Pt also reports incontinent of urine but relays possible urinary catherization at [facility] for retention while there (O) vitals reviewed in the EMR General: NAD, Cooperative HEENT: Atraumatic, not needing O2 Neck: Supple Respiratory: Normal air movement, non tachypnec Cardiovascular: Non tachy Gastrointestinal: Non-distended, NT Musculoskeletal: No muscle spasms Integumentary: No rashes Neurological: Awake, speaks slowly but appropriately, no tremors or other noted Blood work reviewed in the chart. Conclusions/Impression: Stage I SAIDA recently, underlying CKD Stage IIIb/IV long standing, multifactorial and related to comorbidities -Cont to monitor renal function and lytes closely, initial labs show severe hyponatremia was likely spurious HTN with CKD/ CHF -Labile BP trend noted, recent changes made, cont to monitor closely Diastolic CHF, chronic. Dyspnea -No overt pulm edema on imaging, BNP < 1000. BAIRES reported, monitor closely Incontinence of urine, unspecified. -Eval urinary retention with random bladder scan(s)
[2024-06-23] MEDS: ISOSORBIDE MONO SR 60 MG TAB PO SCH (12:23)
--- NOTE | 2024-06-23 13:54 | P.RH.PN ---
Estimated Length of Stay: 13 Expected Discharge Date: 07/05/24 Discharge Disposition Plan: Home Family Support: Yes [facility] Goal: Mobility, Transfers, Self Care Vital Signs: Last Vital Signs Temp 97.7 F 06/23/24 07:41 Pulse 60 06/23/24 12:21 Resp 16 06/23/24 07:41 BP 134/70 06/23/24 12:21 Pulse Ox 98 06/23/24 07:41 Laboratory: Laboratory Last Values WBC 8.20 thou/uL (4.3-10.9) 06/22/24 05:39 RBC 3.46 M/uL (3.86-4.86) L 06/22/24 05:39 Hgb 11.6 g/dL (12.0-15.0) L 06/22/24 05:39 Hct 35.2 % (36.0-45.0) L 06/22/24 05:39 MCV 101.8 fL (80-100) H 06/22/24 05:39 MCH 33.4 pg (27.0-35.0) 06/22/24 05:39 MCHC 32.8 g/dL (32.0-36.0) 06/22/24 05:39 RDW 15.8 % (12.1-15.2) H 06/22/24 05:39 Plt Count 256 thou/uL (152-406) 06/22/24 05:39 MPV 8.9 fL (7.6-11.3) 06/22/24 05:39 Neutrophils % 44.9 % (41.7-73.7) 06/22/24 05:39 Lymphocytes % 38.1 % (15.3-44.8) 06/22/24 05:39 Monocytes % 8.8 % (3.3-12.3) 06/22/24 05:39 Eosinophils % 7.1 % (0-4.4) H 06/22/24 05:39 Basophils % 1.1 % (0-1.3) 06/22/24 05:39 Absolute Neutrophils 3.7 K/uL (1.8-8.0) 06/22/24 05:39 Segmented Neutrophils 62 % (40-80) 06/18/24 04:31 Absolute Lymphocytes 3.1 K/uL (0.7-4.9) 06/22/24 05:39 Lymphocytes 27 % (15-42) 06/18/24 04:31 Monocytes 7 % (0-10) 06/18/24 04:31 Absolute Monocytes 0.7 K/uL (0.1-1.3) 06/22/24 05:39 Eosinophils 4 % (0-3) H 06/18/24 04:31 Absolute Eosinophils 0.6 K/uL (0-0.5) H 06/22/24 05:39 Absolute Basophils 0.1 K/uL (0-0.5) 06/22/24 05:39 Nucleated RBCs 1 /100WBC 06/18/24 04:31 Platelet Estimate Adeq 06/18/24 04:31 Anisocytosis 1+ 06/18/24 04:31 Macrocytosis 1+ 06/18/24 04:31 Morphology Comment Noted (NOT SEEN) 06/18/24 04:31 Sodium 141 mEq/L (136-145) 06/23/24 04:02 Potassium 4.7 mEq/L (3.5-5.1) 06/23/24 04:02 Chloride 112 mEq/L (98-107) H 06/23/24 04:02 Carbon Dioxide 25 mEq/L (21-32) 06/23/24 04:02 Anion Gap 8.7 mEq/L (5.0-15.0) 06/23/24 04:02 BUN 72 mg/dL (7-18) H 06/23/24 04:02 Creatinine 2.11 mg/dL (0.55-1.02) H 06/23/24 04:02 Est GFR (CKD-EPI) 26 ml/min (=/>90) L 06/23/24 04:02 Glucose 105 mg/dL (74-106) 06/23/24 04:02 POC Glucose 112 mg/dL (65-120) 06/23/24 11:50 Hemoglobin A1c 5.2 % (4.2-6.3) 06/19/24 05:26 Uric Acid 6.8 mg/dL (2.6-6.0) H 06/23/24 04:02 Calcium 8.8 mg/dL (8.5-10.1) 06/23/24 04:02 Phosphorus 4.3 mg/dL (2.5-4.9) 06/23/24 04:02 Magnesium 2.2 mg/dL (1.6-2.4) 06/22/24 05:39 Total Bilirubin < 0.2 mg/dL (0.2-1.0) L 06/23/24 04:02 AST 11 U/L (15-37) L 06/23/24 04:02 ALT 17 U/L (13-56) 06/23/24 04:02 Alkaline Phosphatase 146 U/L (45-117) H 06/23/24 04:02 NT-Pro-B Natriuret Pep 420 pg/mL (<125) H 06/23/24 04:02 Serum Total Protein 7.1 g/dL (6.4-8.2) 06/23/24 04:02 Albumin 2.8 g/dL (3.4-5.0) L 06/23/24 04:02 Globulin 4.3 g/dL (2.3-3.5) H 06/23/24 04:02 Albumin/Globulin Ratio 0.7 (1.1-1.8) L 06/23/24 04:02 Prealbumin 23.4 mg/dL (20-40) 06/22/24 05:39 Vitamin B12 570 pg/mL (193-986) 06/23/24 04:02 Urine Color Colorless (Yellow) 06/19/24 19:10 Urine Clarity Clear (Clear) 06/19/24 19:10 Urine pH 5.0 (5.0-7.0) 06/19/24 19:10 Ur Specific [place] 1.010 (1.005-1.030) 06/19/24 19:10 Glucose (UA)(Auto) Negative (Negative) 06/19/24 19:10 Urine Ketones Negative (Negative) 06/19/24 19:10 Urine Blood Negative (Negative) 06/19/24 19:10 Urine Nitrite Negative (Negative) 06/19/24 19:10 Urine Bilirubin Negative (Negative) 06/19/24 19:10 Urine Urobilinogen Normal (Normal) 06/19/24 19:10 Ur Leukocyte Esterase 250 [place]/uL (Negative) H 06/19/24 19:10 Urine RBC <5 /HPF (None Seen) 06/19/24 19:10 Urine WBC <5 /HPF (<5) 06/19/24 19:10 Ur Squamous Epith Cells <5 /HPF (None Seen) 06/19/24 19:10 Urine Bacteria <20 /HPF (<20) 06/19/24 19:10 Urine Yeast (Budding) Trace /HPF (None Seen) H 06/19/24 19:10 Urine Culture Reflexed Not needed 06/19/24 19:10 Ur Random Microalbumin < 0.5 mg/dL (< 1.9) 06/22/24 21:50 U Random Total Protein 8.3 mg/dL (<11.9) 06/22/24 21:50 Urine Creatinine 65.0 mg/dL (20-320) 06/22/24 21:50 Protein/Creatinin Ratio 0.13 ratio (<0.15) 06/22/24 21:50 Urine Total Protein Negative (Negative) 06/19/24 19:10 Weight: 210 lb Wound Present: No Physician Update: Labs reviewed and reviewed. Followed by renal service. Pain is mild to moderate. Some loss of bowel and bladder. No diarrhea today. SLUMS 11, expressive aphasia, word finding difficulty. Met 4 STG, CGA for bed mobility and car transfers. RW 250', up and down 10 steps, WC 250'. Still has left knee and lower back pain. Pain is likely better today expecially with showering. CGA to SBA for all ADLs. Poor endurance. Using adaptive equipment for lower body dressing. Comment: no skin breakdown Summary: Patient's care plan and termite treater helper goals have been reviewed and revised as necessary. Please see the Rehabilitation Signature page for all necessary signatures.
[2024-06-23] MEDS: MAGNESIUM OXIDE 400 MG TAB PO SCH (19:31)
[2024-06-24] MEDS: HYDROCORTISONE 1 % CREAM 30GM TOP PRN (13:37)
--- NOTE | 2024-06-24 18:29 | P.PN ---
Date of Service: 06/24/24 Vital Signs Temp Pulse Resp BP Pulse Ox 97.7 F 59 18 119/63 96 06/24/24 06:39 06/24/24 12:16 06/24/24 12:14 06/24/24 12:16 06/24/24 12:14 Medications Acetaminophen (Acetaminophen 500 Mg Tab) 500 mg PO Q4H PRN PRN Reason: Pain scale 2-4 (Mild) Last Admin: 06/24/24 08:20 Dose: 500 mg Hydrocodone Bitart/Acetaminophen (Hydrocodone/Apap 7.5/325 Mg Tab) 1 tab PO Q6H PRN PRN Reason: Pain scale 5-7 (Moderate) Last Admin: 06/24/24 12:14 Dose: 1 tab Allopurinol (Allopurinol 100 Mg Tab) 100 mg PO DAILY [facility] Last Admin: 06/24/24 08:22 Dose: 100 mg Apixaban (Apixaban 2.5 Mg Tablet) 2.5 mg PO BID [facility] Last Admin: 06/24/24 08:22 Dose: 2.5 mg Aspirin (Aspirin Ec 81 Mg Tab) 81 mg PO DAILY [facility] Last Admin: 06/24/24 08:21 Dose: 81 mg Atorvastatin Calcium (Atorvastatin 20 Mg Tab) 20 mg PO BEDTIME [facility] Last Admin: 06/23/24 19:31 Dose: 20 mg Enteral Nutritional Formula (Glucerna Shake 237 Ml Can) 237 ml PO BID [facility] Last Admin: 06/24/24 08:00 Dose: Not Given Ergocalciferol (Drisdol (Vitamin D=Ergocalciferol) 43475 Unit Cap) 50,000 unit PO Q7D@0900 [facility] Last Admin: 06/22/24 08:25 Dose: 50,000 unit Furosemide (Furosemide 20 Mg Tablet) 20 mg PO DAILY [facility] Last Admin: 06/24/24 08:19 Dose: 20 mg Gabapentin (Gabapentin 300 Mg Cap) 600 mg PO BID [facility] Last Admin: 06/24/24 08:21 Dose: 600 mg Glipizide (Glipizide 5 Mg Tab) 2.5 mg PO DAILY WITH BREAKFAST [facility] Last Admin: 06/24/24 08:20 Dose: 2.5 mg Glucagon (Glucagon 1 Mg/Vial) 1 mg IV 1X PRN; Protocol PRN Reason: HYPOGLYCEMIA Glucose (Dextrose Oral 40% 15 Gm Tube) 15 gm PO PRN PRN PRN Reason: HYPOGLYCEMIA Last Admin: 06/18/24 11:51 Dose: 15 gm Home Med (Linzess 145 Mcg) 1 cap PO DAILY [facility] Last Admin: 06/24/24 08:00 Dose: Not Given Home Med (Hiprex 1g (Methenamine)) 1 g PO BIDWM [facility] Last Admin: 06/24/24 17:14 Dose: 1 g Home Med (Nystatin Powder) 1 ea TOP BID [facility] Last Admin: 06/24/24 08:19 Dose: 1 ea Home Med (Albuterol Inhaler 90 Mcg/Act) 2 ea IH Q4H PRN PRN Reason: SHORTNESS OF BREATH Home Med (Anoro Ellipta 62.5mcg-25mcg) 1 puff PO BEDTIME [facility] Last Admin: 06/23/24 21:21 Dose: 1 puff Hydrocortisone Acetate (Hydrocortisone 1 % Cream 30gm) 1 appl TOP TID PRN PRN Reason: ITCHING Last Admin: 06/24/24 13:37 Dose: 1 appl Insulin Human Regular (Insulin Regular (Human) 100 Unit/Ml) 0 unit SQ ACHS [facility]; Protocol Last Admin: 06/24/24 16:30 Dose: Not Given Isosorbide Mononitrate (Isosorbide Dade Sr 60 Mg Tab) 60 mg PO DAILY [facility] Last Admin: 06/24/24 08:00 Dose: Not Given Lidocaine (Lidocaine 4% Patch) 2 patch TOP DAILY [facility] Last Admin: 06/24/24 08:24 Dose: 2 patch Loperamide HCl (Loperamide Hcl 2 Mg Capsule) 2 mg PO Q4H PRN PRN Reason: DIARRHEA Last Admin: 06/21/24 18:06 Dose: 2 mg Magnesium Oxide (Magnesium Oxide 400 Mg Tab) 400 mg PO BID [facility] Last Admin: 06/24/24 08:22 Dose: 400 mg Melatonin (Melatonin 3 Mg Tablet) 3 mg PO BEDTIME PRN PRN PRN Reason: INSOMNIA Oxybutynin Chloride (Oxybutynin Chloride 5 Mg Tab) 10 mg PO BEDTIME [facility] Last Admin: 06/23/24 19:32 Dose: 10 mg Senna/Docusate Sodium (Docusate Na/Senna Conc 1 Tab) 2 tab PO BEDTIME PRN PRN Reason: CONSTIPATION Sertraline HCl (Sertraline Hcl 100 Mg Tab) 100 mg PO BEDTIME [facility] Last Admin: 06/23/24 19:32 Dose: 100 mg Simethicone (Simethicone 80 Mg Chewable Tab) 80 mg PO TIDP PRN PRN Reason: INDIGESTION Last Admin: 06/24/24 12:15 Dose: 80 mg Lab Results (last 24 hrs) 06/24/24 15:59: POC Glucose 107 06/24/24 11:01: POC Glucose 79 06/24/24 06:47: POC Glucose 114 06/23/24 19:22: POC Glucose 119 Assessment/ Plan: Nephrology No dyspnea No chest pain No acute events overnight Vitals, medications, blood work and imaging reviewed in the chart General: In no apparent distress, Oriented x3, Cooperative HEENT: Atraumatic Neck: Supple Respiratory: Normal air movement Cardiovascular: No edema, Regular rate/rhythm Gastrointestinal: Non-distended, No guarding, Tenderness Musculoskeletal: No clubbing, No contractures Integumentary: No rashes, No cyanosis Neurological: Abnormal speech Blood work reviewed in the chart. Imagings Data: Imaging: CT scan of abdomen and pelvis, no acute abnormalities identified. No osseous abnormalities in the cervical region identified when imaging of the neck was done. MRI of the brain on 06/15, negative for acute stroke. Large area of gliosis in the right temporal, parietal, occipital region compatible with infarct. There is also on the Doppler study, right internal carotid artery estimated occlusion and left internal carotid estimated 60% to 79% occlusion. Stent to the left internal carotid artery with significant plaque visualization, anterograde flow noted. C-spine MRI on 06/07/2024, no acute osseous abnormality. Slight increased partial opacification of the left middle ear and mastoid air cells. Correlate with clinical findings. Conclusions/Impression: Stage I SAIDA in the setting of relative hypotension CKD IIIb -No NSAIDs Hyponatremia -Resolved Hyperkalemia -Resolved HTN with CKD/ CHF -Continue Isosorbide Diastolic CHF, chronic -Continue lasix once daily and titrate as needed -CXR reviewed in the chart DM II with Polyneuropathy -RISS -Continue Glipizide -Continue Gabapentin Hypoalbuminemia -Continue Glucerna Anemia in chronic illness Macrocytosis -B12 level normal Attending note reviewed
[2024-06-25 05:46] LABS: Absolute Basophils 0.1 K/uL (0-0.5); Absolute Eosinophils 0.5 K/uL (0-0.5); Absolute Lymphocytes (CBC) 3.4 K/uL (0.7-4.9); Absolute Monocytes 0.7 K/uL (0.1-1.3); Absolute Neutrophil 3.4 K/uL (1.8-8.0); Basophils % 1.4 % (0-1.3); Eosinophils % 6.7 % (0-4.4); Hematocrit 34.5 % (36.0-45.0); Hemoglobin 11.4 g/dL (12.0-15.0); Lymphocytes % 41.5 % (15.3-44.8); Monocytes % 8.5 % (3.3-12.3); Neutrophils % 41.9 % (41.7-73.7); Nucleated Red Blood Cells % 0.3 % (0-0); Platelets 214 thou/uL (152-406); RBC Red Blood Cell Count 3.35 M/uL (3.86-4.86); Red Cell Distribution Width 16.1 % (12.1-15.2)
[2024-06-25 06:02] LABS: Anion Gap 6.1 mEq/L (5.0-15.0); Potassium 5.1 mEq/L (3.5-5.1)
[2024-06-25] MEDS: SODIUM ZIRCONIUM CYCLOSILICATE 10 GM/PKT PO ONE (08:59)
[2024-06-26 06:17] LABS: Anion Gap 7.2 mEq/L (5.0-15.0); Potassium 5.2 mEq/L (3.5-5.1)
[2024-06-26] MEDS: SODIUM ZIRCONIUM CYCLOSILICATE 10 GM/PKT PO SCH (12:44)
[2024-06-26] MEDS: MELATONIN 3 MG TABLET PO SCH (19:47)
--- NOTE | 2024-06-26 20:17 | PN ---
Date of Progress Note: 06/26/2024 Time Of Service: 1:10 p.m. Subjective: Ms. Blankenship is sitting in her room comfortably. She says pain in the left knee is improve d. She does have left knee wrapped and on the right shoulder, she has lidocaine patch in place and f eels she is making fair progress overall. Objective: No new pains or difficulty in terms of the pain that is already reported in the left knee and right shoulder and no myalgias, arthralgias. No rash. No psychiatric issues. Physical Examination: Vital Signs: Blood pressure 163/81, pulse 62, respiratory rate of 16, temperature is 98.3, oxygen sa turation 94%. General: Again, Ms. Mata is sitting in a chair beside her bed in between therapy sessions. Laboratory Data: Blood Work: White blood cell count 8.1, hemoglobin 11.4, platelets are 214. Sodiu m 142, potassium 5.2, which is slightly elevated, chloride 110, BUN 69, creatinine 1.91, glucose rang ed from 77 to 145, calcium 9.1. X-ray/imaging: No new x-rays or imaging over the last few days. Medications: The patient is followed by Dr. Larson on the [facility]al Service and he is making changes to medications including checking B12 levels, continuing isosorbide, and the med rec may continue glipi zide and gabapentin and continue Lasix titration. Progress Made With Physical And Occupational Therapy: With physical therapy today, she did bed mobil ity, turning in bed independently, supine to sit done independently. She needed contact guard assist ance for [id number] with some left knee pain being a limiting factor. She did multiple sit-to-jc d transfers and [id number] transfers independently. She completed stimulated car transfer indepe ndently and picked up multiple objects on the floor from supervision to modified independence level. She ambulated 500 feet with a rolling walker and did also with supervision to modified independence. She is up and down 12 steps independently and mobilized a wheelchair 250 feet independently. With occupational therapy, independent for naf-[id number] transfer, independent with toilet transfers, and i ndependent with toilet hygiene, and again ADLs and did have slow pace as she did therapy. With speech, she required moderate assistance for sequencing 3 steps and activities of daily living or IADLs and have 80% accuracy. She could recall 3 of 4 unrelated items with moderate to minimum ass istance after 3 minutes. Assessment: Ms. Blankenship is a 63-year-old patient admitted to the rehabilitation unit with sequelae of stroke. She does have some left-sided incoordination and weakness, right shoulder pain, left knee pa in and she has renal insufficiency, followed by the Renal Service. In addition, she has dyslipidemia , diabetes mellitus, diabetic neuropathy, insomnia, bloating with gas pain, depression, urinary reten tion, and constipation, which is improving. Plan: She will continue with physical, occupational, and speech therapy 3.5 hours, 5 of 7 days. She will continue with her list of medications, manage her comorbid conditions, and she will continue wi th the plan for discharge and continue therapy via Home Health and the Renal Service will be followin g the patient. Her comorbidities are not negatively impacting her rehabilitation. HAFSA/KENNEY Voice ID: [id number] Report ID: [id number]
--- NOTE | 2024-06-26 22:15 | P.PN ---
Date of Service: 06/26/24 Vital Signs Temp Pulse Resp BP Pulse Ox 98.2 F 61 18 139/59 L 98 06/26/24 20:07 06/26/24 20:07 06/26/24 20:07 06/26/24 20:07 06/26/24 20:07 Medications Acetaminophen (Acetaminophen 500 Mg Tab) 500 mg PO Q4H PRN PRN Reason: Pain scale 2-4 (Mild) Last Admin: 06/26/24 08:55 Dose: 500 mg Hydrocodone Bitart/Acetaminophen (Hydrocodone/Apap 7.5/325 Mg Tab) 1 tab PO Q6H PRN PRN Reason: Pain scale 5-7 (Moderate) Last Admin: 06/25/24 10:37 Dose: 1 tab Allopurinol (Allopurinol 100 Mg Tab) 100 mg PO DAILY [facility] Last Admin: 06/26/24 08:55 Dose: 100 mg Apixaban (Apixaban 2.5 Mg Tablet) 2.5 mg PO BID [facility] Last Admin: 06/26/24 19:40 Dose: 2.5 mg Aspirin (Aspirin Ec 81 Mg Tab) 81 mg PO DAILY [facility] Last Admin: 06/26/24 08:48 Dose: 81 mg Atorvastatin Calcium (Atorvastatin 20 Mg Tab) 20 mg PO BEDTIME [facility] Last Admin: 06/26/24 19:39 Dose: 20 mg Enteral Nutritional Formula (Glucerna Shake 237 Ml Can) 237 ml PO BID [facility] Last Admin: 06/26/24 19:40 Dose: 237 ml Ergocalciferol (Drisdol (Vitamin D=Ergocalciferol) 16122 Unit Cap) 50,000 unit PO Q7D@0900 [facility] Last Admin: 06/22/24 08:25 Dose: 50,000 unit Furosemide (Furosemide 20 Mg Tablet) 20 mg PO DAILY [facility] Last Admin: 06/26/24 12:42 Dose: 20 mg Gabapentin (Gabapentin 300 Mg Cap) 600 mg PO BID [facility] Last Admin: 06/26/24 19:40 Dose: 600 mg Glipizide (Glipizide 5 Mg Tab) 2.5 mg PO DAILY WITH BREAKFAST [facility] Last Admin: 06/26/24 08:56 Dose: 2.5 mg Glucagon (Glucagon 1 Mg/Vial) 1 mg IV 1X PRN; Protocol PRN Reason: HYPOGLYCEMIA Glucose (Dextrose Oral 40% 15 Gm Tube) 15 gm PO PRN PRN PRN Reason: HYPOGLYCEMIA Last Admin: 06/18/24 11:51 Dose: 15 gm Home Med (Linzess 145 Mcg) 1 cap PO DAILY [facility] Last Admin: 06/26/24 08:00 Dose: Not Given Home Med (Hiprex 1g (Methenamine)) 1 g PO BIDWM [facility] Last Admin: 06/26/24 17:01 Dose: 1 g Home Med (Nystatin Powder) 1 ea TOP BID [facility] Last Admin: 06/26/24 19:40 Dose: 1 ea Home Med (Albuterol Inhaler 90 Mcg/Act) 2 ea IH Q4H PRN PRN Reason: SHORTNESS OF BREATH Home Med (Anoro Ellipta 62.5mcg-25mcg) 1 puff PO BEDTIME [facility] Last Admin: 06/26/24 19:40 Dose: 1 puff Hydrocortisone Acetate (Hydrocortisone 1 % Cream 30gm) 1 appl TOP TID PRN PRN Reason: ITCHING Last Admin: 06/26/24 12:43 Dose: 1 appl Insulin Human Regular (Insulin Regular (Human) 100 Unit/Ml) 0 unit SQ ACHS [facility]; Protocol Last Admin: 06/26/24 20:18 Dose: Not Given Isosorbide Mononitrate (Isosorbide [place] Sr 60 Mg Tab) 60 mg PO DAILY [facility] Last Admin: 06/26/24 12:42 Dose: 60 mg Lidocaine (Lidocaine 4% Patch) 2 patch TOP DAILY [facility] Last Admin: 06/26/24 08:56 Dose: 2 patch Loperamide HCl (Loperamide Hcl 2 Mg Capsule) 2 mg PO Q4H PRN PRN Reason: DIARRHEA Last Admin: 06/21/24 18:06 Dose: 2 mg Magnesium Oxide (Magnesium Oxide 400 Mg Tab) 400 mg PO BID [facility] Last Admin: 06/26/24 19:39 Dose: 400 mg Melatonin (Melatonin 3 Mg Tablet) 5 mg PO BEDTIME [facility] Last Admin: 06/26/24 19:47 Dose: 6 mg Oxybutynin Chloride (Oxybutynin Chloride 5 Mg Tab) 10 mg PO BEDTIME [facility] Last Admin: 06/26/24 19:40 Dose: 10 mg Senna/Docusate Sodium (Docusate Na/Senna Conc 1 Tab) 2 tab PO BEDTIME PRN PRN Reason: CONSTIPATION Sertraline HCl (Sertraline Hcl 100 Mg Tab) 100 mg PO BEDTIME [facility] Last Admin: 06/26/24 19:40 Dose: 100 mg Simethicone (Simethicone 80 Mg Chewable Tab) 80 mg PO TIDP PRN PRN Reason: INDIGESTION Last Admin: 06/24/24 12:15 Dose: 80 mg Lab Results (last 24 hrs) 06/26/24 19:47: POC Glucose 131 H 06/26/24 16:47: POC Glucose 92 06/26/24 12:04: POC Glucose 77 06/26/24 06:53: POC Glucose 114 06/26/24 05:35: Sodium 142, Potassium 5.2 H, Chloride 110 H, Carbon Dioxide 30, Anion Gap 7.2, BUN 69 H, Creatinine 1.91 H, Est GFR (CKD-EPI) 29 L, Glucose 125 H, Calcium 9.1 Assessment/ Plan: Nephrology No dyspnea No chest pain No acute events overnight Vitals, medications, blood work and imaging reviewed in the chart General: In no apparent distress, Oriented x3, Cooperative HEENT: Atraumatic Neck: Supple Respiratory: Normal air movement Cardiovascular: No edema, Regular rate/rhythm Gastrointestinal: Non-distended, No guarding, Tenderness Musculoskeletal: No clubbing, No contractures Integumentary: No rashes, No cyanosis Neurological: Abnormal speech Blood work reviewed in the chart. Imagings Data: Imaging: CT scan of abdomen and pelvis, no acute abnormalities identified. No osseous abnormalities in the cervical region identified when imaging of the neck was done. MRI of the brain on 06/15, negative for acute stroke. Large area of gliosis in the right temporal, parietal, occipital region compatible with infarct. There is also on the Doppler study, right internal carotid artery estimated occlusion and left internal carotid estimated 60% to 79% occlusion. Stent to the left internal carotid artery with significant plaque visualization, anterograde flow noted. C-spine MRI on 06/07/2024, no acute osseous abnormality. Slight increased partial opacification of the left middle ear and mastoid air cells. Correlate with clinical findings. Conclusions/Impression: Stage I SAIDA in the setting of relative hypotension CKD IIIb -No NSAIDs Hyponatremia -Resolved Hyperkalemia -Resolved HTN with CKD/ CHF -Continue Isosorbide Diastolic CHF, chronic -Continue lasix once daily and titrate as needed -CXR reviewed in the chart DM II with Polyneuropathy -RISS -Continue Glipizide -Continue Gabapentin Hypoalbuminemia -Continue Glucerna Anemia in chronic illness Macrocytosis -B12 level normal Attending note reviewed
[2024-06-27 06:00] LABS: Absolute Basophils 0.1 K/uL (0-0.5); Absolute Eosinophils 0.6 K/uL (0-0.5); Absolute Lymphocytes (CBC) 2.7 K/uL (0.7-4.9); Absolute Monocytes 0.5 K/uL (0.1-1.3); Absolute Neutrophil 4.7 K/uL (1.8-8.0); Basophils % 1.3 % (0-1.3); Eosinophils % 6.7 % (0-4.4); Hematocrit 33.4 % (36.0-45.0); Hemoglobin 10.8 g/dL (12.0-15.0); Lymphocytes % 31.3 % (15.3-44.8); MCH 33.1 pg (27.0-35.0); MCHC 32.4 g/dL (32.0-36.0); MCV 102.1 fL (80-100); Neutrophils % 54.7 % (41.7-73.7); Nucleated Red Blood Cells % 0.3 % (0-0); Platelets 222 thou/uL (152-406); RBC Red Blood Cell Count 3.27 M/uL (3.86-4.86); Red Cell Distribution Width 15.8 % (12.1-15.2)
[2024-06-27 06:25] LABS: Albumin 2.7 g/dL (3.4-5.0); Anion Gap 6.7 mEq/L (5.0-15.0); Magnesium 2.5 mg/dL (1.6-2.4); Potassium 4.7 mEq/L (3.5-5.1); Prealbumin 22.5 mg/dL (20-40)
[2024-06-27] MEDS: MELATONIN 5 MG TABLET PO SCH (19:28)
--- NOTE | 2024-06-27 20:44 | P.PN ---
Date of Service: 06/27/24 Vital Signs Temp Pulse Resp BP Pulse Ox 97.9 F 62 17 115/60 96 06/27/24 19:02 06/27/24 19:02 06/27/24 19:02 06/27/24 19:02 06/27/24 19:02 Medications Acetaminophen (Acetaminophen 500 Mg Tab) 500 mg PO Q4H PRN PRN Reason: Pain scale 2-4 (Mild) Last Admin: 06/26/24 08:55 Dose: 500 mg Hydrocodone Bitart/Acetaminophen (Hydrocodone/Apap 7.5/325 Mg Tab) 1 tab PO Q6H PRN PRN Reason: Pain scale 5-7 (Moderate) Last Admin: 06/27/24 12:11 Dose: 1 tab Allopurinol (Allopurinol 100 Mg Tab) 100 mg PO DAILY [facility] Last Admin: 06/27/24 08:17 Dose: 100 mg Apixaban (Apixaban 2.5 Mg Tablet) 2.5 mg PO BID [facility] Last Admin: 06/27/24 19:28 Dose: 2.5 mg Aspirin (Aspirin Ec 81 Mg Tab) 81 mg PO DAILY [facility] Last Admin: 06/27/24 08:16 Dose: 81 mg Atorvastatin Calcium (Atorvastatin 20 Mg Tab) 20 mg PO BEDTIME [facility] Last Admin: 06/27/24 19:28 Dose: 20 mg Enteral Nutritional Formula (Glucerna Shake 237 Ml Can) 237 ml PO BID [facility] Last Admin: 06/27/24 19:28 Dose: 237 ml Ergocalciferol (Drisdol (Vitamin D=Ergocalciferol) 16524 Unit Cap) 50,000 unit PO Q7D@0900 [facility] Last Admin: 06/22/24 08:25 Dose: 50,000 unit Furosemide (Furosemide 20 Mg Tablet) 20 mg PO DAILY [facility] Last Admin: 06/27/24 08:17 Dose: 20 mg Gabapentin (Gabapentin 300 Mg Cap) 600 mg PO BID [facility] Last Admin: 06/27/24 19:27 Dose: 600 mg Glipizide (Glipizide 5 Mg Tab) 2.5 mg PO DAILY WITH BREAKFAST [facility] Last Admin: 06/27/24 08:17 Dose: 2.5 mg Glucagon (Glucagon 1 Mg/Vial) 1 mg IV 1X PRN; Protocol PRN Reason: HYPOGLYCEMIA Glucose (Dextrose Oral 40% 15 Gm Tube) 15 gm PO PRN PRN PRN Reason: HYPOGLYCEMIA Last Admin: 06/18/24 11:51 Dose: 15 gm Home Med (Linzess 145 Mcg) 1 cap PO DAILY [facility] Last Admin: 06/27/24 08:00 Dose: Not Given Home Med (Hiprex 1g (Methenamine)) 1 g PO BIDWM [facility] Last Admin: 06/27/24 16:59 Dose: 1 g Home Med (Nystatin Powder) 1 ea TOP BID [facility] Last Admin: 06/27/24 19:28 Dose: 1 ea Home Med (Albuterol Inhaler 90 Mcg/Act) 2 ea IH Q4H PRN PRN Reason: SHORTNESS OF BREATH Home Med (Anoro Ellipta 62.5mcg-25mcg) 1 puff PO BEDTIME [facility] Last Admin: 06/27/24 19:29 Dose: 1 puff Hydrocortisone Acetate (Hydrocortisone 1 % Cream 30gm) 1 appl TOP TID PRN PRN Reason: ITCHING Last Admin: 06/26/24 12:43 Dose: 1 appl Insulin Human Regular (Insulin Regular (Human) 100 Unit/Ml) 0 unit SQ ACHS [facility]; Protocol Last Admin: 06/27/24 16:30 Dose: Not Given Isosorbide Mononitrate (Isosorbide [place] Sr 60 Mg Tab) 60 mg PO DAILY [facility] Last Admin: 06/27/24 12:11 Dose: 60 mg Lidocaine (Lidocaine 4% Patch) 2 patch TOP DAILY [facility] Last Admin: 06/27/24 08:18 Dose: 2 patch Loperamide HCl (Loperamide Hcl 2 Mg Capsule) 2 mg PO Q4H PRN PRN Reason: DIARRHEA Last Admin: 06/21/24 18:06 Dose: 2 mg Magnesium Oxide (Magnesium Oxide 400 Mg Tab) 400 mg PO BID [facility] Last Admin: 06/27/24 19:28 Dose: 400 mg Melatonin (Melatonin 5 Mg Tablet) 5 mg PO BEDTIME [facility] Last Admin: 06/27/24 19:28 Dose: 5 mg Oxybutynin Chloride (Oxybutynin Chloride 5 Mg Tab) 10 mg PO BEDTIME [facility] Last Admin: 06/27/24 19:28 Dose: 10 mg Senna/Docusate Sodium (Docusate Na/Senna Conc 1 Tab) 2 tab PO BEDTIME PRN PRN Reason: CONSTIPATION Sertraline HCl (Sertraline Hcl 100 Mg Tab) 100 mg PO BEDTIME [facility] Last Admin: 06/27/24 19:27 Dose: 100 mg Simethicone (Simethicone 80 Mg Chewable Tab) 80 mg PO TIDP PRN PRN Reason: INDIGESTION Last Admin: 06/24/24 12:15 Dose: 80 mg Lab Results (last 24 hrs) 06/27/24 20:21: POC Glucose 177 H 06/27/24 16:26: POC Glucose 124 H 06/27/24 11:36: POC Glucose 127 H 06/27/24 06:59: POC Glucose 108 06/27/24 05:26: Sodium 141, Potassium 4.7, Chloride 109 H, Carbon Dioxide 30, Anion Gap 6.7, BUN 69 H, Creatinine 1.82 H, Est GFR (CKD-EPI) 31 L, Glucose 127 H, Calcium 9.2, Magnesium 2.5 H, Albumin 2.7 L, Prealbumin 22.5 06/27/24 05:26: WBC 8.50, RBC 3.27 L, Hgb 10.8 L, Hct 33.4 L, MCV 102.1 H, MCH 33.1, MCHC 32.4, RDW 15.8 H, Plt Count 222, MPV 10.0, Neutrophils % 54.7, Lymphocytes % 31.3, Monocytes % 6.0, Eosinophils % 6.7 H, Basophils % 1.3, Absolute Neutrophils 4.7, Absolute Lymphocytes 2.7, Absolute Monocytes 0.5, Absolute Eosinophils 0.6 H, Absolute Basophils 0.1 Assessment/ Plan: Nephrology No dyspnea No chest pain No acute events overnight Vitals, medications, blood work and imaging reviewed in the chart General: In no apparent distress, Oriented x3, Cooperative HEENT: Atraumatic Neck: Supple Respiratory: Normal air movement Cardiovascular: No edema, Regular rate/rhythm Gastrointestinal: Non-distended, No guarding, Tenderness Musculoskeletal: No clubbing, No contractures Integumentary: No rashes, No cyanosis Neurological: Abnormal speech Blood work reviewed in the chart. Imagings Data: Procedure: Chest Single View HISTORY: CHF exacerbation COMPARISON: none FINDINGS: The lungs appear clear of acute infiltrate. No significant pleural effusion noted. The heart is mildly enlarged. Post surgical changes involve the chest. IMPRESSION: No acute abnormality is displayed. Imaging: CT scan of abdomen and pelvis, no acute abnormalities identified. No osseous abnormalities in the cervical region identified when imaging of the neck was done. MRI of the brain on 06/15, negative for acute stroke. Large area of gliosis in the right temporal, parietal, occipital region compatible with infarct. There is also on the Doppler study, right internal carotid artery estimated occlusion and left internal carotid estimated 60% to 79% occlusion. Stent to the left internal carotid artery with significant plaque visualization, anterograde flow noted. C-spine MRI on 06/07/2024, no acute osseous abnormality. Slight increased partial opacification of the left middle ear and mastoid air cells. Correlate with clinical findings. Conclusions/Impression: Stage I SAIDA in the setting of relative hypotension CKD IIIb -No NSAIDs Hyponatremia -Resolved Hyperkalemia -Resolved HTN with CKD/ CHF -Continue Isosorbide Diastolic CHF, chronic -Continue lasix once daily and titrate as needed -CXR reviewed in the chart DM II with Polyneuropathy -RISS -Continue Glipizide -Continue Gabapentin Hypoalbuminemia -Continue Glucerna Anemia in chronic illness Macrocytosis -B12 level normal Attending note reviewed
--- NOTE | 2024-06-28 01:43 | PN ---
Date of Progress Note: 06/27/2024 Time Of Service: 1:35 p.m. Subjective: Ms. Blankenship is ready for discharge in the morning. Still has some pain in the left knee, which is bandaged, also the right shoulder. She is again happy with therapy. She will be discharged home to continue therapy via Home Health. Objective: No new findings, but still ongoing pain in left knee, but no fevers, chills. No other me ntion of myalgias, arthralgias, rash. She is of course followed by the Renal Service, Dr. Larson. Physical Examination: Vital Signs: Blood pressure 115/60, pulse 62, respiratory rate 17, temp 97.9, O2 saturation 96%. General: Ms. Blankenship is sitting in a chair beside bed. HEENT: She is normocephalic, atraumatic. Sclerae anicteric. Oropharynx pink, moist. Extremities: Left knee is bandaged. There is some mild pain to palpation and it is actually wrapped with an [place] wrap. She does have improvement in terms of her strength and movement in the left upper and lower extremities. Laboratory Studies: White blood cell count 8.5, hemoglobin 10.8, platelets 222. Sodium 141, potassi um 4.7, chloride 109, carbon dioxide is 30, BUN 69, creatinine 1.82, glucose ranged from 108 to 177, calcium 9.2, magnesium 2.9, albumin 2.7, prealbumin 22.5. X-ray And Imaging: No new x-rays or imaging. Medications: Have been reviewed and are unchanged. They are managed by the Renal Service. Progress Made With Physical, Occupational, And Speech Therapy: With physical therapy today, she comp leted turning and supine movement in bed independently with cross legs and did very well. Sit-to-sta nd and transfers with modified independence. She ambulated 250 feet with rolling walker. She comple naida 15 steps, 4 inch steps with modified independence. Mobilized a wheelchair 250 feet independently . With occupational therapy, independent with [id number] transfers, independent with bathing, uppe r and lower body dressing, footwear is also independent. With her speech therapy today, she was able to do a 15/15 in the BIMS score and 12/30 on the SLUMS score consistent with moderate cognitive impa irment. Assessment: Ms. Blankenship is a 63-year-old patient in rehabilitation unit with sequelae of stroke from [facility] she is making fair progress. She still has significant weakness in left lower extremity. Much improved in lower extremity, but still has pain there. She has decreased mobility, decreased physica l functioning, renal insufficiency managed by the Renal Service and diabetes mellitus, constipation, urinary retention, depression, gout. Plan: She will continue again with physical, occupational, and speech therapy after discharge home a nd will continue with management of her comorbid conditions including the renal dysfunction with the renal service and at time of discharge. HAFSA/KENNEY Voice ID: [id number] Report ID: [id number]
[2024-06-28 06:35] VITALS: BP 149/71; TEMP 97.4
[2024-06-28] MEDS: FE SULF/FA/VIT B COMP & C TAB PO SCH (08:24)
== END 2024-06-28 10:14 | disposition home health service (06) | DRG 57 ==
LOC: 5TH 17:03
PROVIDERS: ADMIT Psychiatry & Neurology Neurology with Special Qualifications in Child Neurology; ATTEND Psychiatry & Neurology Neurology with Special Qualifications in Child Neurology
DX: I69.354 Hemiplegia and hemiparesis following cerebral infarction affecting left non-dominant side (principal); N17.9 Acute kidney failure, unspecified; I13.0 Hypertensive heart and chronic kidney disease with heart failure and stage 1 through stage 4 chronic kidney disease, or unspecified chronic kidney disease; I50.32 Chronic diastolic (congestive) heart failure; E87.1 Hypo-osmolality and hyponatremia; I69.322 Dysarthria following cerebral infarction; I69.398 Other sequelae of cerebral infarction; R27.8 Other lack of coordination; R26.89 Other abnormalities of gait and mobility; M25.562 Pain in left knee; M25.512 Pain in left shoulder; R32 Unspecified urinary incontinence; R15.9 Full incontinence of feces; R33.9 Retention of urine, unspecified; E87.5 Hyperkalemia; E88.09 Other disorders of plasma-protein metabolism, not elsewhere classified; N18.32 Chronic kidney disease, stage 3b; E11.22 Type 2 diabetes mellitus with diabetic chronic kidney disease; D63.8 Anemia in other chronic diseases classified elsewhere; I25.10 Atherosclerotic heart disease of native coronary artery without angina pectoris; R14.0 Abdominal distension (gaseous); I95.9 Hypotension, unspecified; E78.5 Hyperlipidemia, unspecified; K59.00 Constipation, unspecified; G47.00 Insomnia, unspecified; M10.9 Gout, unspecified; M54.50 Low back pain, unspecified; E11.42 Type 2 diabetes mellitus with diabetic polyneuropathy; M19.90 Unspecified osteoarthritis, unspecified site; J44.9 Chronic obstructive pulmonary disease, unspecified; F41.9 Anxiety disorder, unspecified; F32.A Depression, unspecified; Z91.81 History of falling; Z87.440 Personal history of urinary (tract) infections; Z95.1 Presence of aortocoronary bypass graft
CPT/HCPCS: 36415; 71045; 80048; 80053; 81001; 82040; 82043; 82570; 82607; 82947; 83036; 83735; 83880; 84100; 84134; 84156; 84550; 85025; 92523; 97110; 97112; 97116; 97129; 97163; 97165; 97530; 97542; J2003; J3535; J7040